=== PATIENT | female | born 1965 | race American Indian/Alaskan Native ===

== ENCOUNTER 2016-08-20 21:16 | Emergency (ER) | payer MEDICAID ==
[2016-08-21 08:03] VITALS: BP 140/60
--- NOTE | 2016-08-21 08:16 | XRay Report ---
LEFT HUMERUS RADIOGRAPHS: INDICATION: Fall. COMPARISON: None similar. Correlated to 05/16/2016 CXR. FINDINGS: Attempted AP and lateral views somewhat technically limited with few extrinsic artifacts, though demonstrate an acute left proximal humeral shaft oblique fracture at/just below its neck with cortical offset of approximately 6 mm medially. Left glenohumeral joint degenerative changes with faint ossification/bony hypertrophy possible about the humeral head. Increased acromiohumeral distance/partial subluxation of the humeral head may be present. Demineralized bones. Left arm soft tissue swelling not entirely excluded versus related to patient's body habitus. Clear visualized left lung. CONCLUSION: 1. Acute oblique left proximal humerus fracture with approximately 6 mm displacement and possible inferior subluxation of the left humeral head, as detailed above. 2. Bony demineralization and left shoulder degenerative changes. Thank you for the opportunity to participate in this patient's care.
--- NOTE | 2016-08-21 08:21 | XRay Report ---
LEFT SHOULDER RADIOGRAPHS: INDICATION: Fall. COMPARISON: None similar. Correlated to 05/16/2016 CXR. FINDINGS: Frontal and Y-views of the left shoulder attempted, though limited due to patient positioning and demonstrate an oblique, acute left proximal humeral shaft fracture with cortical offset of 7-8 mm. Slight rotation of the humeral head possible with increased acromiohumeral distance/suspected subluxation. Glenohumeral degenerative changes with some ossification/new bone growth along the humeral head not excluded. Demineralized bones. Clear imaged left lung. Intact acromioclavicular joint. CONCLUSION: 1. An acute, oblique left proximal humerus shaft fracture with approximately 8 mm displacement noted as also some inferior subluxation/slight rotation of the humeral head on this technically limited exam, as detailed above. 2. Other findings, including demineralized bones and intact left AC joint. Thank you for the opportunity to participate in this patient's care.
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
[2016-08-21] MEDS ORDERED: TORADOL IM ONE (09:15)
== END 2016-08-21 09:44 | disposition home or self-care (01) ==
LOC: ED 21:16
DX: S42.292D Other displaced fracture of upper end of left humerus, subsequent encounter for fracture with routine healing (principal); I10 Essential (primary) hypertension; I63.9 Cerebral infarction, unspecified; J44.9 Chronic obstructive pulmonary disease, unspecified; Z79.82 Long term (current) use of aspirin; W19.XXXD Unspecified fall, subsequent encounter
CPT/HCPCS: 73030; 73060; 96372; 99283; J1885

== ENCOUNTER 2017-05-12 14:42 | Emergency (ER) | payer MEDICAID ==
[2017-05-12 14:53] VITALS: BP 147/58
[2017-05-12] MEDS ORDERED: PERCOCET 5/325 PO PRN (15:45)
[2017-05-12 16:08] LABS: Hematocrit 31.2 % (30.3-42.9); Hemoglobin 9.6 gm/dl (10.1-14.3); Mean Corpuscular HGB Conc 31 % (30-34); Mean Corpuscular Volume 79 fl (79-97); Platelet Count 289 K/mm3 (140-440); Red Blood Count 3.93 M/mm3 (3.65-5.03); Red Cell Distribution Width 17.1 % (13.2-15.2); White Blood Count 8.3 K/mm3 (4.5-11.0)
[2017-05-12 16:23] LABS: Mean Corpuscular Hemoglobin 24 pg (28-32)
[2017-05-12 16:33] LABS: Anion Gap 20 mmol/L; BUN/Creatinine Ratio 14; Blood Urea Nitrogen 11 mg/dL (7-17); Calcium 9.2 mg/dL (8.4-10.2); Carbon Dioxide 19 mmol/L (22-30); Chloride 104.7 mmol/L (98-107); Glucose 82 mg/dL (65-100); Sodium 140 mmol/L (137-145)
[2017-05-12] MEDS ORDERED: NACL 0.9% 500 ML 500 ML IV ONE (17:54)
[2017-05-12] MEDS ORDERED: CLEOCIN 900 MG/50 mL 900 MG/50 ML BAG IV ONE (17:54)
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
[2017-05-12] MEDS ORDERED: MORPHINE ONE (20:32)
[2017-05-12] MEDS ORDERED: MORPHINE IV ONE (20:39)
[2017-05-12] MEDS ORDERED: BENADRYL ONE (20:54)
[2017-05-13] MEDS ORDERED: BENADRYL IV ONE (03:26)
== END 2017-05-12 21:04 | disposition other institution (70) ==
LOC: ED 14:42
DX: T22.292A Burn of second degree of multiple sites of left shoulder and upper limb, except wrist and hand, initial encounter (principal); I10 Essential (primary) hypertension; I63.9 Cerebral infarction, unspecified; J44.9 Chronic obstructive pulmonary disease, unspecified; Z79.82 Long term (current) use of aspirin; X08.8XXA Exposure to other specified smoke, fire and flames, initial encounter; Y93.9 Activity, unspecified; Y99.9 Unspecified external cause status; Y92.89 Other specified places as the place of occurrence of the external cause
CPT/HCPCS: 36415; 80048; 85027; 96365; 96375; 99285; J1200; J2270; J2930; J7040

== ENCOUNTER 2017-06-12 13:23 | Emergency (ER) | payer MEDICAID ==
--- NOTE | 2017-06-12 14:54 | XRay Report ---
LEFT SHOULDER, 2 VIEWS LEFT HUMERUS, 2 VIEWS History: Pain after fall. Findings: Compared to 08/20/16. There is an oblique fracture through the humeral neck region which appears unchanged in position and alignment since 08/20/16. There is minimal calcified callus although fracture lines remain evident. This has the appearance of an ununited fracture. The remainder of the left humerus is intact. The humeral head is low riding with respect to the glenoid consistent with a large joint effusion or laxity of the joint capsule. The clavicle and scapula are intact. Minor osteoarthritic changes are noted. 

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
[2017-06-12 19:26] VITALS: BP 129/83
[2017-06-12] MEDS ORDERED: FLEXERIL PO ONE (19:34)
[2017-06-12] MEDS ORDERED: MOTRIN PO ONE (19:35)
== END 2017-06-12 20:26 | disposition home or self-care (01) ==
LOC: ED 13:23
DX: S42.295S Other nondisplaced fracture of upper end of left humerus, sequela (principal); I10 Essential (primary) hypertension; J44.9 Chronic obstructive pulmonary disease, unspecified; Z86.73 Personal history of transient ischemic attack (TIA), and cerebral infarction without residual deficits; Z79.82 Long term (current) use of aspirin; W01.0XXA Fall on same level from slipping, tripping and stumbling without subsequent striking against object, initial encounter; Y93.89 Activity, other specified; Y99.8 Other external cause status; Y92.098 Other place in other non-institutional residence as the place of occurrence of the external cause
CPT/HCPCS: 99284